=== PATIENT | male | born 1980 | race Two or more races ===

== ENCOUNTER 2020-09-29 09:26 | Emergency (ER) | payer OTHER ==
[~2020-09-29] VITALS: Ht 170.2 cm; Wt 91.0 kg
[2020-09-29 10:30] VITALS: BP 131/88
--- NOTE | 2020-09-29 11:41 | PHYS DOC ---
Past Medical History Past Medical History: Diabetes-Type II Past Surgical History: No Surgical History Smoking Status: Never Smoker Alcohol Use: None General Adult EDM: Chief Complaint: UPPER EXTREMITY INJURY HPI: HPI: Patient is a 40 year old male who presents with 1 day of right lower arm pain that is sharp and shoots up into the shoulder. He states nothing makes it better. He states when his arm is hanging down and makes it worse. 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 Patient denies numbness or tingling, extremity swelling, skin color changes, skin temperature changes. He denies any focal weakness. Denies any other medical problems. Patient rates his pain at a 9 out of 10. Review of Systems: Review of Systems: Constitutional: Denies fever or chills. [] Eyes: Denies change in visual acuity. [] HENT: Denies nasal congestion or sore throat. [] Respiratory: Denies cough or shortness of breath. [] Cardiovascular: Denies chest pain or edema. [] GI: Denies abdominal pain, nausea, vomiting, bloody stools or diarrhea. [] : Denies dysuria. [] Musculoskeletal: Denies back pain or joint pain. + Right arm with sharp shooting pain up into the shoulder [] Integument: Denies rash. [] Neurologic: Denies headache, focal weakness or sensory changes. [] Endocrine: Denies polyuria or polydipsia. [] Lymphatic: Denies swollen glands. [] Psychiatric: Denies depression or anxiety. [] Heart Score: Risk Factors: Risk Factors: DM, Current or recent (<one month) smoker, HTN, HLP, family history of CAD, obesity. Risk Scores: Score 0 - 3: 2.5% MACE over next 6 weeks - Discharge Home Score 4 - 6: 20.3% MACE over next 6 weeks - Admit for Clinical Observation Score 7 - 10: 72.7% MACE over next 6 weeks - Early Invasive Strategies Allergies: Allergies: Allergies Coded Allergies Type Severity Reaction Last Updated Verified No Known Drug Allergies 09/29/20 No Physical Exam: PE: Constitutional: Well developed, well nourished, no acute distress, non-toxic appearance. [] HENT: Normocephalic, atraumatic, bilateral external ears normal, oropharynx moist, no oral exudates, nose normal. [] Eyes: PERRLA, EOMI, conjunctiva normal, no discharge. [] Neck: Normal range of motion, no tenderness, supple, no stridor. [] Cardiovascular:Heart rate regular rhythm, no murmur [] Lungs & Thorax: Bilateral breath sounds clear to auscultation [] Abdomen: Bowel sounds normal, soft, no tenderness, no masses, no pulsatile masses. [] Skin: Warm, dry, no erythema, no rash. [] Back: No tenderness, no CVA tenderness. [] Extremities: No tenderness, no cyanosis, no clubbing, ROM intact, no edema. [] Neurologic: Alert and oriented X 3, normal motor function, normal sensory function, no focal deficits noted. [] Psychologic: Affect normal, judgement normal, mood normal. Normal physical exam [] Current Patient Data: Vital Signs: Vital Signs Date Time Temp Pulse Resp B/P (MAP) Pulse Ox O2 Delivery O2 Flow Rate FiO2 09/29/20 10:30 97.9 68 18 131/88 (102) 99 Room Air 97.9 EKG: EKG: [] Radiology/Procedures: Radiology/Procedures: [] Course & Med Decision Making: Course & Med Decision Making Pertinent Labs and Imaging studies reviewed. (See chart for details) See HPI. Alert and oriented x4. Ambulatory to steady gait. 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 Radial pulse strong and present. Cap refill less than 2 seconds. No unilateral extremity swelling. Full sensations intact. Full range of motion of all the joints. No joint swelling or deformities or laxities. Patient makes a full strong fist. This is likely a pinched nerve due to patient's job and usage of his arm. Patient will be placed on Medrol Dosepak, NSAIDs, lidocaine patches. [] Dragon Disclaimer: Dragon Disclaimer: This electronic medical record was generated, in whole or in part, using a voice recognition dictation system. Departure Departure Impression: Primary Impression: Impingement of right ulnar nerve Disposition: 01 DC HOME SELF CARE/HOMELESS Condition: STABLE Referrals: NO PCP (PCP) Patient Instructions: Cervical Radiculopathy Additional Instructions: Take medications as prescribed with food. Follow-up with your primary care phys ician. Use lidocaine patches but do not put the heating pad over the lidocaine patch. Lay the arm in a comfortable position but did not hang to your side constantly as that will cause swelling. Scripts Lidocaine (Lidocaine PATCH ) 1 Each Adh..patch 1 EACH TP DAILY for FOR LOCAL PAIN, #7 PATCH REMOVE AFTER 12 HOURS Prov: KIM ALFONSO APRN 09/29/20 Methylprednisolone (MEDROL) 4 Mg Tab.ds.pk 1 PKG PO UD, #1 PKG Prov: KIM ALFONSO APRN 09/29/20 Ibuprofen (IBUPROFEN) 600 Mg Tablet 600 MG PO PRN Q6HRS PRN for INFLAMMATION, #30 TAB Prov: KMI ALFONSO APRN 09/29/20 KIM ALFONSO APRN Sep 29, 2020 11:41
[2020-09-29] MEDS ORDERED: IBUP-1007 PO (11:49)
[2020-09-29] MEDS ORDERED: METH4TAB2 PO (11:49)
[2020-09-29] MEDS ORDERED: LIDO700A21 TP (11:49)
== END 2020-09-29 12:12 | disposition home or self-care (01) ==
LOC: ER 09:26
DX: M79.601 Pain in right arm (principal); E11.9 Type 2 diabetes mellitus without complications
CPT/HCPCS: 99283